=== PATIENT | male | born 1940 | race Caucasian/White ===

== ENCOUNTER 2016-11-24 12:15 | Emergency (ER) | payer OTHER, MEDICARE ==
[2016-11-24 12:23] VITALS: BMI 22.6
[2016-11-24 12:30] VITALS: BP 130/86; PULSE 80; RESP 15; TEMP 98.4; O2SAT 99
[2016-11-24] MEDS ORDERED: TDAP Vaccine 0.5 mL Syr IM ONE (12:34)
--- NOTE | 2016-11-24 12:38 | ED PDOC ---
Arrival/HPI - General Chief Complaint: Trauma Time Seen by Provider: 11/24/16 12:28 Historian: Patient - History of Present Illness Narrative History of Present Illness (Text): 11/24/16 12:30 Juancarlos Parnell is a 76 year old male who presents to the emergency department complaining of facial and right hand abrasions s/p mechanical fall prior to arrival. Patient states that he was walking on an unleveled sidewalk, tripped, and fell on his face. Patient is not aware if his tetanus shot is updated. Patient denies any loss of consciousness, dizziness, nausea, or any other complaints at this time. PMD: Dr. 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 stenosis - HEENT Hx HEENT Disorder: Yes Hx Cataracts: Yes Other/Comment: seasonal allergies - Renal Hx Renal Disorder: No - Endocrine/Metabolic Hx Endocrine Disorders: No - Hematological/Oncological Hx Blood Disorders: No - Integumentary Hx Dermatological Disorder: Yes Other/Comment: cut on leg post fall - Musculoskeletal/Rheumatological Hx Musculoskeletal Disorders: Yes Hx Back Pain: Yes Hx Falls: Yes Hx Gout: Yes Hx Osteoarthritis: Yes Hx Spinal Stenosis: Yes (cervical) Hx Unsteady Gait: Yes Other/Comment: left knee pain - Gastrointestinal Hx Gastrointestinal Disorders: Yes Hx Gastroesophageal Reflux: Yes - Genitourinary/Gynecological Hx Genitourinary Disorders: No - Psychiatric Hx Psychophysiologic Disorder: No Hx Substance Use: No - Surgical History Hx Musculoskeletal Surgery: Yes (attempted anterior cervical decompression) - Anesthesia Hx Anesthesia: Yes Hx Anesthesia Reactions: No Hx Malignant Hyperthermia: No Family/Social History - Physician Review Nursing Documentation Reviewed: Yes Family/Social History: No Known Family HX Smoking Status: Former Smoker Hx Alcohol Use: No Hx Substance Use: No Allergies/Home Meds Allergies/Adverse Reactions: Allergies No Known Allergies Allergy (Verified 11/24/16 12:23) Home Medications: Home Meds Medication Instructions Recorded Confirmed Ranitidine HCl [Ranitidine 150] 150 mg PO DAILY 04/27/14 11/24/16 Rosuvastatin Calcium [Crestor] 5 mg PO DAILY 04/27/14 11/24/16 Alfuzosin HCl [Uroxatral] 10 mg PO DAILY 11/24/16 11/24/16 Allopurinol [Zyloprim] 300 mg PO DAILY 11/24/16 11/24/16 Cetirizine HCl [Zyrtec] 10 mg PO DAILY 11/24/16 11/24/16 amLODIPine [Norvasc] 2.5 mg PO DAILY 11/24/16 11/24/16 Review of Systems - Physician Review All systems were reviewed & negative as marked: Yes - Review of Systems Constitutional: absent: Fevers, Night Sweats Eyes: absent: Vision Changes ENT: absent: Hearing Changes Respiratory: absent: SOB, Cough Cardiovascular: absent: Chest Pain Gastrointestinal: absent: Abdominal Pain Genitourinary Male: absent: Urinary Output Changes Musculoskeletal: absent: Back Pain, Neck Pain Skin: Other (facial and hand abrasions) Neurological: absent: Headache, Focal Weakness Endocrine: absent: Diaphoresis Hemo/Lymphatic: absent: Adenopathy Psychiatric: absent: Depression Physical Exam Vital Signs Reviewed: Yes Vital Signs Temp Pulse Resp BP Pulse Ox 11/24/16 12:30 98.4 F 80 15 130/86 99 Temperature: Afebrile Blood Pressure: Normal Pulse: Regular Respiratory Rate: Normal Appearance: Positive for: Well-Appearing, Non-Toxic, Comfortable Pain Distress: None Mental Status: Positive for: Alert and Oriented X 3 - Systems Exam Head: Present: Atraumatic, Normocephalic Pupils: Present: PERRL Extroacular Muscles: Present: EOMI Conjunctiva: Present: Normal Mouth: Present: Moist Mucous Membranes Neck: Present: Normal Range of Motion Respiratory/Chest: Present: Clear to Auscultation, Good Air Exchange. No: Respiratory Distress, Accessory Muscle Use Cardiovascular: Present: Regular Rate and Rhythm, Normal S1, S2. No: Murmurs Abdomen: Present: Normal Bowel Sounds. No: Tenderness, Distention, Peritoneal Signs Back: Present: Normal Inspection Upper Extremity: Present: Normal Inspection. No: Cyanosis, Edema Lower Extremity: Present: Normal Inspection. No: Edema Neurological: Present: GCS=15, CN II-XII Intact, Speech Normal Skin: Present: Abrasion (to left side orbits and face, tenderness to face; right hand-dorsal side 1st MCP; no tenderness to hand, full ROM) Psychiatric: Present: Alert, Oriented x 3, Normal Insight, Normal Concentration Medical Decision Making ED Course and Treatment: 11/24/16 12:30 Impression: 76 male complaining of facial and right abrasions s/p mechanical fall on sidewalk prior to arrival. Differential Diagnosis included but are not limited to: mechanical fall r/o facial fracture Plan: -- Head CT w/o contrast -- Orbits Facial CT w/o contrast -- Boostrix, Tylenol -- Reassess and disposition Progress Notes: 11/24/16 13:45 Facial abrasion treated with Bacitracin. Reviewed radiology, CTs are normal. Patient will follow up with PMD. 11/24/16 13:50 CT ORBITS WITHOUT CONTRAST Creator : NICOLETTE COOMBS MD FINDINGS: RIGHT ORBIT: RIGHT BONY ORBIT:No evidence of acute fracture. RIGHT INTRAORBITAL STRUCTURES:Globe: Normal. Extraocular muscles: Normal. Post septal space: Normal. Optic Nerve: Normal. Lacrimal Apparatus: Normal. RIGHT PRESEPTAL SOFT TISSUES:Normal. LEFT ORBIT: LEFT BONY ORBIT:No evidence of acute fracture. LEFT INTRAORBITAL STRUCTURES:Globe: Normal. Extraocular muscles: Normal. Post septal space: Normal Optic Nerve: Normal. . Lacrimal Apparatus: Normal. LEFT PRESEPTAL SOFT TISSUES:Normal. OTHER:None. IMPRESSION: No evidence of acute orbital fracture or periorbital soft tissue hematoma. 11/24/16 13:54 CT HEAD WITHOUT CONTRAST Creator : NICOLETTE COOMBS MD FINDINGS: HEMORRHAGE:No intracranial hemorrhage. BRAIN:There are mild chronic microangiopathic changes. There is no mass, mass effect or abnormal extra-axial fluid collection. VENTRICLES:There is mild age-related global parenchymal volume loss and proportionate enlargement of the ventricles and cortical sulci. CALVARIUM:There is no calvarial fracture or extracranial soft tissue swelling. PARANASAL SINUSES:Predominantly clear. MASTOID AIR CELLS:Predominantly clear. OTHER FINDINGS:None. IMPRESSION: No acute intracranial abnormality. Mild chronic microangiopathic changes and mild age-related global parenchymal volume loss. - RAD Interpretation Radiology Orders: 11/24/16 12:34 HEAD W/O CONTRAST [CT] Stat ORBITS/ FACIALS W/O CONTRAST [CT] Stat - Medication Orders Current Medication Orders: Bacitracin (Bacitracin) 1 ea TOP ONCE ONE Stop: 11/24/16 14:01 Last Admin: 11/24/16 13:50 Dose: 1 EA Discontinued Medications Acetaminophen (Tylenol 325mg Tab) 975 mg PO STAT STA Stop: 11/24/16 12:35 Last Admin: 11/24/16 12:39 Dose: 975 MG MAR Pain/Vitals Document 11/24/16 12:39 SE (Rec: 11/24/16 12:39 SE [id number]) Pain Reassessment Is This A Pain ReAssessment? No Sleep Is patient sleeping during reassessment? No Presence of Pain Presence of Pain Yes Pain Scale Used Pain Scale Used Numeric Location Left, Right or Bilateral Left Pain Location Body Site Face Tetanus/Reduced Diphtheria/Acell Pertussis (Boostrix Vaccine Inj) 0.5 ml IM .ONCE ONE Stop: 11/24/16 12:35 Last Admin: 11/24/16 12:39 Dose: 0.5 ML MAR Immunization Data Document 11/24/16 12:39 SE (Rec: 11/24/16 12:40 SE [id number]) Immunization Data Vaccine Lot Number [id number] Vaccine Expiration Date 11/22/18 Site Given Right Arm Route Intramuscular Immunization Units ml - Scribe Statement The provider has reviewed the documentation as recorded by the Shelbi June Provider Scribe Attestation: All medical record entries made by the Scribe were at my direction and personally dictated by me. I have reviewed the chart and agree that the record accurately reflects my personal performance of the history, physical exam, medical decision making, and the department course for this patient. I have also personally directed, reviewed, and agree with the discharge instructions and disposition. Disposition/Present on Arrival - Present on Arrival Any Indicators Present on Arrival: No History of DVT/PE: No History of Uncontrolled Diabetes: No Urinary Catheter: No History of Decub. Ulcer: No History Surgical Site Infection Following: None - Disposition Have Diagnosis and Disposition been Completed?: Yes Diagnosis: Head injury, Facial abrasion, Fall Disposition: HOME/ ROUTINE Disposition Time: 13:30 Patient Plan: Discharge Patient Problems: Current Active Problems Problem Status Diagnosed Facial abrasion Acute Fall Acute Head injury Acute Condition: IMPROVED Discharge Instructions (ExitCare): Head Injury (ED), Abrasion (ED) Additional Instructions: Parmjit, thank you for letting us take care of you today. Your provider was Dr. Barriga. You were treated for Facial Abrasions, Head injury, Fall. The emergency medical care you received today was directed at your acute symptoms. If you were prescribed any medication, please fill it and take as directed. It may take several days for your symptoms to resolve. Return to the Emergency Department if your symptoms worsen, do not improve, or if you have any other problems. Please contact your doctor or call one of the physicians/clinics you have been referred to that are listed on the Patient Visit Information form that is included in your discharge packet. Bring any paperwork you were given at discharge with you along with any medications you are taking to your follow up visit. Our treatment cannot replace ongoing medical care by a primary care provider (PCP) outside of the emergency department. Thank you [facility] of your care today. If you had an X-Ray or CT scan: A Radiologist will review the ED reading if any change in treatment is needed we will contact you. If you had a blood, urine, or wound culture: It will take several days for the results, if any change in treatment is needed we will contact you. If you had an STI test: It will take 48 hours for the results. Please call after 1 week if you have not heard back. Referrals: Chris Garcia MD [Primary Care Provider] - Follow up with primary Forms: WORK NOTE
--- NOTE | 2016-11-24 13:25 | CT ---
PROCEDURE: CT HEAD WITHOUT CONTRAST. HISTORY: fall with head inj r/o ich COMPARISON: None available. TECHNIQUE: Axial computed tomography images were obtained through the head/brain without intravenous contrast. Radiation dose: Total exam DLP = 789.73 mGy-cm. FINDINGS: HEMORRHAGE: No intracranial hemorrhage. BRAIN: There are mild chronic microangiopathic changes. There is no mass, mass effect or abnormal extra-axial fluid collection. VENTRICLES: There is mild age-related global parenchymal volume loss and proportionate enlargement of the ventricles and cortical sulci. CALVARIUM: There is no calvarial fracture or extracranial soft tissue swelling. PARANASAL SINUSES: Predominantly clear. MASTOID AIR CELLS: Predominantly clear. OTHER FINDINGS: None. IMPRESSION: No acute intracranial abnormality. Mild chronic microangiopathic changes and mild age-related global parenchymal volume loss.
--- NOTE | 2016-11-24 13:45 | CT ---
PROCEDURE: CT ORBITS WITHOUT CONTRAST. HISTORY: Fall with facial inj to left r/o fx COMPARISON: None available. TECHNIQUE: Axial CT images of the orbits were obtained. Coronal and sagittal reformats were generated. Radiation dose: Total exam DLP = 789.73 mGy-cm. FINDINGS: RIGHT ORBIT: RIGHT BONY ORBIT: No evidence of acute fracture. RIGHT INTRAORBITAL STRUCTURES: Globe: Normal. Extraocular muscles: Normal. Post septal space: Normal. Optic Nerve: Normal. Lacrimal Apparatus: Normal. RIGHT PRESEPTAL SOFT TISSUES: Normal. LEFT ORBIT: LEFT BONY ORBIT: No evidence of acute fracture. LEFT INTRAORBITAL STRUCTURES: Globe: Normal. Extraocular muscles: Normal. Post septal space: Normal Optic Nerve: Normal. . Lacrimal Apparatus: Normal. LEFT PRESEPTAL SOFT TISSUES: Normal. OTHER: None. IMPRESSION: No evidence of acute orbital fracture or periorbital soft tissue hematoma.
[2016-11-24] MEDS ORDERED: Bacitracin 500 Units/gm Oint Foilpak UD TOP ONE (14:00)
== END 2016-11-24 14:35 | disposition home or self-care (01) ==
LOC: ED 12:15
DX: S00.81XA Abrasion of other part of head, initial encounter (principal); W01.0XXA Fall on same level from slipping, tripping and stumbling without subsequent striking against object, initial encounter; Y93.01 Activity, walking, marching and hiking; Y92.480 Sidewalk as the place of occurrence of the external cause; Z23 Encounter for immunization

== ENCOUNTER 2016-12-14 07:12 | Day surgery (SDC) | payer MEDICARE, OTHER ==
[2016-12-03 08:28] VITALS: BMI 22.6
[2016-12-14] MEDS ORDERED: Simethicone 40 mg/0.6 ml Liquid (30 ml) ONE (07:57)
[2016-12-14] MEDS ORDERED: Propofol 10 mg/ml Inj (20 ML) ONE (09:49)
[2016-12-14] MEDS ORDERED: Phenylephrine 10 mg/ml Inj ONE (09:54)
[2016-12-14] MEDS ORDERED: ePHEDrine 50 mg/ml Inj ONE (09:54)
[2016-12-14] MEDS ORDERED: Sodium Chloride 0.9% 1,000 ML IV SCH (11:30)
[2016-12-14 11:57] LABS: HEMATOCRIT 38.9 % (42.0-52.0); MEAN CORPUSCULAR HEMOGLOBIN 31.9 pg (25.0-35.0); MEAN CORPUSCULAR HGB CONC 33.9 g/dl (31.0-37.0); MEAN PLATELET VOLUME 9.6 fl (7.0-11.0); RED CELL DISTRIBUTION WIDTH 13.3 % (11.5-14.5); WHITE BLOOD COUNT 5.2 10^3/ul (4.5-11.0)
[2016-12-14 12:06] LABS: INR 1.06 (0.93-1.08); PARTIAL THROMBOPLASTIN TIME 29.9 Seconds (23.7-30.8)
[2016-12-14 12:09] LABS: ALB/GLOB RATIO 1.1 (1.1-1.8); ALKALINE PHOSPHATASE 86 U/L (38-133); ALT/SGPT 42 U/L (7-56); AST/SGOT 31 U/L (15-59); BILIRUBIN,TOTAL 0.9 mg/dL (0.2-1.3); BLOOD UREA NITROGEN 13 mg/dL (7-21); CALCIUM 8.6 mg/dL (8.4-10.5); CARBON DIOXIDE 25 mmol/L (21-33); CHLORIDE 105 mmol/L (98-107); GFR AFRICAN-AMERICAN > 60; GLUCOSE,RANDOM 90 mg/dL (70-110); POTASSIUM 3.5 mmol/L (3.6-5.0); SODIUM 139 mmol/L (132-148); TOTAL PROTEIN 7.6 g/dL (5.8-8.3)
[2016-12-14] MEDS ORDERED: Iohexol 350 MG/100 ML VIAL ONE (13:40)
--- NOTE | 2016-12-14 14:29 | CT ---
PROCEDURE: CT Chest and abdomen with intravenous and oral contrast HISTORY: PULSATIN ESOPHAGEAL MASS PER DR GOTTI stat COMPARISON: None. TECHNIQUE: IV dose administered: 100 cc of Omni 350 Radiation dose: Total exam DLP = 322 mGy-cm. This CT exam was performed using one or more of the following dose reduction techniques: Automated exposure control, adjustment of the mA and/or kV according to patient size, and/or use of iterative reconstruction technique. FINDINGS: CT CHEST: LUNGS: Clear. No nodule, mass or consolidation. MEDIASTINUM: Unremarkable. Normal caliber aorta and pulmonary arterial trunk. No aortic dissection. Normal size heart. LYMPH NODES: Unremarkable. PLEURA: Unremarkable. No pneumothorax. No pleural fluid. BONES: Unremarkable. OTHER FINDINGS:: The esophagus is unremarkable. There are no enhancing or vascular lesions visualized. There is no vascular compression CT ABDOMEN: LIVER: Unremarkable. No gross lesion or ductal dilatation. GALLBLADDER AND BILE DUCTS: Unremarkable. PANCREAS: Unremarkable. No gross lesion or ductal dilatation. SPLEEN: Unremarkable. ADRENALS: Unremarkable. No mass. KIDNEYS AND URETERS: Unremarkable. No hydronephrosis. No solid mass. VASCULATURE: Unremarkable. No aortic aneurysm. STOMACH AND BOWEL: Unremarkable, as visualized. The entire bowel was not visualized, as the pelvis was not included in this study. PERITONEUM: Unremarkable. No free fluid. No free air. LYMPH NODES: Unremarkable. No enlarged lymph nodes. BONES: No acute fracture. OTHER FINDINGS: None. IMPRESSION: No evidence of enhancing or vascular mass in the esophagus.
[2016-12-14 14:35] VITALS: BP 149/74; PULSE 78; RESP 16; TEMP 97.5; O2SAT 97
== END 2016-12-14 16:03 | disposition home or self-care (01) ==
LOC: ENDO 07:12 → EDUNIT# 08:30 → ENDO 16:03
PROVIDERS: ATTEND Internal Medicine Gastroenterology
DX: K62.1 Rectal polyp (principal); K57.30 Diverticulosis of large intestine without perforation or abscess without bleeding; K64.8 Other hemorrhoids; K22.70 Barrett's esophagus without dysplasia; K25.9 Gastric ulcer, unspecified as acute or chronic, without hemorrhage or perforation; K22.9 Disease of esophagus, unspecified; I10 Essential (primary) hypertension; E78.5 Hyperlipidemia, unspecified; M48.00 Spinal stenosis, site unspecified; Z12.11 Encounter for screening for malignant neoplasm of colon; K29.50 Unspecified chronic gastritis without bleeding
CPT/HCPCS: 36415; 43239; 45380; 71260; 74160; 80053; 85027; 85610; 85730; 88305; 88312; 88342; J2001; J2370; J2704; J3010; J7040; Q9967

== ENCOUNTER 2017-02-12 16:38 | Observation (INO) | payer MEDICARE, OTHER ==
[2017-02-12 16:39] VITALS: BMI 22.6
[2017-02-12] MEDS ORDERED: Sodium Chloride 0.9% 1,000 ML IV STA (17:45)
[2017-02-12] MEDS ORDERED: Pantoprazole 40 MG in Sodium Chloride 0.9% 100 ML IV STA (17:45)
--- NOTE | 2017-02-12 17:52 | ED PDOC ---
Arrival/HPI - General Chief Complaint: GI Problem Time Seen by Provider: 02/12/17 17:20 Historian: Patient - History of Present Illness Narrative History of Present Illness (Text): 02/12/17 17:49 76 year old male presents to the emergency department complaining of vomiting and diffuse abdominal pain since last night. Denies urinary symptoms, diarrhea, or other complaints. Time/Duration: 24 hours Symptom Onset: Gradual Symptom Course: Unchanged Modifying Factors (Text): None Associated Symptoms (Text): None Past Medical History - Provider Review Nursing Documentation Reviewed: Yes - Infectious Disease Hx of Infectious Diseases: None - Cardiac Hx Cardiac Disorders: Yes Hx Hypertension: Yes Hx Pacemaker: No - Pulmonary Hx Respiratory Disorders: No - Neurological Hx Paralysis: No - HEENT Hx HEENT Disorder: Yes Hx Cataracts: Yes Other/Comment: seasonal allergies - Renal Hx Renal Disorder: No - Endocrine/Metabolic Hx Endocrine Disorders: No - Hematological/Oncological Hx Blood Transfusions: No - Integumentary Hx Dermatological Disorder: Yes Other/Comment: cut on leg post fall - Musculoskeletal/Rheumatological Hx Musculoskeletal Disorders: Yes - Gastrointestinal Hx Gastrointestinal Disorders: Yes Hx Gastroesophageal Reflux: Yes - Genitourinary/Gynecological Hx Genitourinary Disorders: No - Psychiatric Hx Emotional Abuse: No Hx Physical Abuse: No Hx Substance Use: No - Surgical History Other/Comment: colon/endoscopy. - Anesthesia Hx Anesthesia: Yes Hx Anesthesia Reactions: No Hx Malignant Hyperthermia: No - Suicidal Assessment Feels Threatened In Home Enviroment: No Family/Social History - Physician Review Nursing Documentation Reviewed: Yes Family/Social History: Unknown Family HX Smoking Status: Former Smoker Hx Alcohol Use: No Hx Substance Use: No Allergies/Home Meds Allergies/Adverse Reactions: Allergies No Known Allergies Allergy (Verified 02/12/17 16:48) Home Medications: Home Meds Medication Instructions Recorded Confirmed Ranitidine HCl [Ranitidine 150] 150 mg PO DAILY 04/27/14 02/12/17 Rosuvastatin Calcium [Crestor] 5 mg PO DAILY 04/27/14 02/12/17 Alfuzosin HCl [Uroxatral] 10 mg PO DAILY 11/24/16 02/12/17 Cetirizine HCl [Zyrtec] 10 mg PO DAILY 11/24/16 02/12/17 amLODIPine [Norvasc] 2.5 mg PO DAILY 11/24/16 02/12/17 Omeprazole [Omeprazole] 40 mg PO DAILY 12/14/16 02/12/17 Review of Systems - Physician Review All systems were reviewed & negative as marked: Yes - Review of Systems Gastrointestinal: Abdominal Pain (diffuse), Vomiting. absent: Diarrhea Genitourinary Male: absent: Dysuria, Hematuria Physical Exam Vital Signs Reviewed: Yes Vital Signs Temp Pulse Resp BP Pulse Ox 02/13/17 01:00 98.9 F 81 18 119/88 98 02/12/17 21:05 98.1 F 87 14 121/90 97 02/12/17 20:00 89 17 135/80 99 02/12/17 17:47 89 18 134/79 99 02/12/17 16:50 98.2 F 95 H 19 136/81 99 Temperature: Afebrile Blood Pressure: Normal Pulse: Regular Respiratory Rate: Normal Appearance: Positive for: Well-Appearing, Non-Toxic, Comfortable Pain Distress: None Mental Status: Positive for: Alert and Oriented X 3 - Systems Exam Head: Present: Atraumatic, Normocephalic Mouth: Present: Moist Mucous Membranes Neck: Present: Normal Range of Motion Respiratory/Chest: Present: Clear to Auscultation. No: Respiratory Distress, Accessory Muscle Use Cardiovascular: Present: Regular Rate and Rhythm, Normal S1, S2. No: Murmurs Abdomen: Present: Normal Bowel Sounds. No: Tenderness, Distention, Peritoneal Signs Back: Present: Normal Inspection Upper Extremity: No: Cyanosis, Edema Lower Extremity: No: Edema Neurological: Present: GCS=15, CN II-XII Intact Skin: Present: Warm, Dry, Normal Color. No: Rashes Psychiatric: Present: Alert, Oriented x 3 Medical Decision Making ED Course and Treatment: Impression: 76 year old male presents to the emergency department complaining of vomiting and diffuse abdominal pain since last night. Differential Diagnosis include but are not limited to: rule out SBO, rule out intraabdominal pathology like appendicitis Plan: -- CT Abdomen/Pelvis, EKG -- Protonix, Zofran -- IV fluids -- Labs -- Reassess and disposition Progress Notes: 02/13/17 09:51 - Lab Interpretations Lab Results: 02/12/17 17:00 02/12/17 17:00 Lab Results 02/12/17 17:00: Sodium 132, Potassium 3.7, Chloride 95 L, Carbon Dioxide 24, Anion Gap 17, BUN 10, Creatinine 0.7, Est GFR ( Amer) > 60, Est GFR (Non- Af Amer) > 60, Random Glucose 126 H, Calcium 9.3, Total Bilirubin 1.0, AST 30, ALT 40, Alkaline Phosphatase 110, Lactate Dehydrogenase 364, Total Creatine Kinase 126, Troponin I < 0.01, Total Protein 8.5 H, Albumin 4.7, Globulin 3.8, Albumin/Globulin Ratio 1.2, Amylase 87, Lipase 46 02/12/17 17:00: Urine Color Yellow, Urine Appearance Clear, Urine pH 6.5, Ur Specific Paulina 1.015, Urine Protein Negative, Urine Glucose (UA) Negative, Urine Ketones 15 H, Urine Blood Trace-intact H, Urine Nitrate Negative, Urine Bilirubin Negative, Urine Urobilinogen 0.2, Ur Leukocyte Esterase Negative, Urine RBC 2 - 5, Urine WBC 0 - 2, Ur Epithelial Cells 0 - 2, Amorphous Sediment Trace, Urine Bacteria Small 02/12/17 17:00: PT 11.6, INR 1.07, APTT 30.3 02/12/17 17:00: WBC 6.1, RBC 4.45, Hgb 14.1, Hct 41.0 L, MCV 92.1, MCH 31.7, MCHC 34.4, RDW 12.4, Plt Count 236, MPV 9.7, Gran % 87.3 H, Lymph % (Auto) 10.7 L, Bureau % (Auto) 1.8, Eos % (Auto) 0.0 L, Baso % (Auto) 0.2, Gran # 5.29, Lymph # 0.7 L, Bureau # 0.1, Eos # 0.0, Baso # 0.01 - RAD Interpretation Radiology Orders: 02/12/17 17:45 ABD PELVIS PO & IV CONTRAST [CT] Stat - Medication Orders Current Medication Orders: Acetaminophen (Tylenol 325mg Tab) 650 mg PO Q6H PRN PRN Reason: Fever >100.4 F Last Admin: 02/13/17 09:16 Dose: 650 mg Amlodipine Besylate (Norvasc) 2.5 mg PO DAILY [facility] Last Admin: 02/13/17 09:15 Dose: 2.5 mg Atorvastatin Calcium (Lipitor) 20 mg PO DIN [facility] Famotidine (Pepcid) 20 mg PO HS [facility] Last Admin: 02/13/17 01:06 Dose: 20 mg Dextrose/Sodium Chloride (Dextrose 5%/0.9% Ns 1000 Ml) 1,000 mls @ 100 mls/hr IV .Q10H [facility] Last Admin: 02/13/17 01:06 Dose: 100 mls/hr Ibuprofen (Motrin Tab) 600 mg PO Q6H PRN PRN Reason: Pain, Mild (1-3) Loratadine (Claritin) 10 mg PO DAILY [facility] Last Admin: 02/13/17 09:16 Dose: 10 mg Non-Formulary Medication (Alfuzosin Hcl [Uroxatral]) 10 mg PO DAILY [facility] Ondansetron HCl (Zofran Inj) 4 mg IVP Q6H PRN PRN Reason: Nausea/Vomiting Pantoprazole Sodium (Protonix Ec Tab) 40 mg PO ACB [facility] Last Admin: 02/13/17 09:10 Dose: 40 mg Promethazine HCl (Phenergan Tab) 25 mg PO TID PRN PRN Reason: abdominal pain Discontinued Medications Sodium Chloride (Sodium Chloride 0.9%) 1,000 mls @ 200 mls/hr IV .Q5H [facility] Stop: 02/12/17 22:44 Last Admin: 02/12/17 18:00 Dose: 200 mls/hr Iohexol (Omnipaque 240 (50 Ml)) Confirm Administered Dose 50 ml .ROUTE .STK-MED ONE Stop: 02/12/17 18:55 Iohexol (Omnipaque 350 100 Ml) Confirm Administered Dose 350 mg .ROUTE .STK-MED ONE Stop: 02/12/17 20:27 Ondansetron HCl (Zofran Inj) 4 mg IVP STAT [facility] Stop: 02/12/17 17:46 Last Admin: 02/12/17 18:00 Dose: 4 mg Ondansetron HCl (Zofran Inj) 8 mg IVP Q6H PRN PRN Reason: Nausea/Vomiting Pantoprazole Sodium (Protonix Inj) 40 mg IVP STAT STA Stop: 02/12/17 18:01 Last Admin: 02/12/17 18:01 Dose: 40 mg Pantoprazole Sodium (Protonix Inj) Confirm Administered Dose 40 mg .ROUTE .STK- MED ONE Stop: 02/12/17 17:59 Last Admin: 02/12/17 18:01 Dose: ED OBSERVATION Date of observation admission: 02/12/17 Time of observation admission: 17:48 - Observation admission statement Patient is being placed in observation because:: abdominal pain - Goals of Observation Goals of observation are:: monitor patient's response to treatments in the ER - Progress Note Progress Note: 02/12/17 17:48 On initial exam, patient with diffuse abdominal pain. 02/12/17 19:48 Patient with no new complaints. EXAM: CT Abdomen and Pelvis With Intravenous Contrast FINDINGS: Lower thorax: Heart size is normal. There are coronary calcifications. There is a small hiatal hernia. There is subsegmental atelectasis at the lung bases. There is minimal scarring at the lung bases. ABDOMEN: Liver: There is fatty infiltration of the liver. There are small hepatic cysts. Gallbladder and bile ducts: Gallbladder is partially distended. Common bile duct is dilated, 10.8 mm in diameter. Pancreas: unremarkable Spleen: unremarkable Adrenals: unremarkable Kidneys and ureters: There are bilateral renal cysts. There are additional low attenuation lesions too small to characterize.There is no pelvocaliectasis or ureterectasis. Stomach and bowel: The stomach is distended with contrast and air. Rotation is normal. There is no small bowel obstruction. Terminal ileum is unremarkable. Appendix is unremarkable. Colon is incompletely distended which limits evaluation. There is scattered diverticulosis Appendix: See stomach and bowel PELVIS: Bladder: Bladder is distended. Reproductive: Prostate is mildly enlarged. There is prominence of the seminal vesicles. ABDOMEN and PELVIS: Intraperitoneal space: There is no free air or free fluid. Bones/joints: There is a posterior right 10th rib fracture. There are degenerative changes in the spine. There are bulky bridging osteophytes. There is disc disease greatest L3- 4 and L5-S1. Soft tissues: There is a small fat containing umbilical hernia. Vasculature: There are vascular calcifications. Lymph nodes: There is no pathologic adenopathy. IMPRESSION: Subsegmental atelectasis at the lung bases; hepatic and renal cysts ; mildly distended gallbladder with dilated common duct; mildly enlarged prostate with distended bladder; no acute solid visceral or bowel abnormality Additional findings as described above. Dictated and Authenticated by: Hiwot Boudreaux MD 02/12/2017 10:05 PM Eastern Time ([place] & [place]) 02/12/17 22:33 CT Abdomen and Pelvis shows questionable gallbladder pathology. Will order US. 02/12/17 23:[address] Swain, hydroelectric station operator, who is aware and agrees with plan for obs med surg for intractable vomiting. Accepts pt in to hospitalist service. 02/13/17 09:51 - Scribe Statement The provider has reviewed the documentation as recorded by the Shelbi Terrell Provider Scribe Attestation: All medical record entries made by the Shelbi were at my direction and personally dictated by me. I have reviewed the chart and agree that the record accurately reflects my personal performance of the history, physical exam, medical decision making, and the department course for this patient. I have also personally directed, reviewed, and agree with the discharge instructions and disposition. Disposition/Present on Arrival - Present on Arrival Any Indicators Present on Arrival: No History of DVT/PE: No History of Uncontrolled Diabetes: No Urinary Catheter: No History of Decub. Ulcer: No History Surgical Site Infection Following: None - Disposition Have Diagnosis and Disposition been Completed?: Yes Diagnosis: Intractable vomiting Disposition: HOSPITALIZED Disposition Time: 23:00 Patient Plan: Observation Patient Problems: Current Active Problems Problem Status Onset Intractable vomiting Acute Condition: GOOD
[2017-02-12 17:59] LABS: ADD MANUAL DIFF? NO
[2017-02-12 18:04] LABS: BASO # 0.01 K/mm3 (0.0-2.0); BASO % 0.2 % (0.0-3.0); GRAN # 5.29 (1.4-6.5); GRAN % 87.3 % (50.0-68.0); LYMPH # 0.7 (1.2-3.4); LYMPH % 10.7 % (22.0-35.0); MEAN CELL VOLUME 92.1 fL (80.0-105.0); MEAN CORPUSCULAR HEMOGLOBIN 31.7 pg (25.0-35.0); MEAN CORPUSCULAR HGB CONC 34.4 g/dl (31.0-37.0); MEAN PLATELET VOLUME 9.7 fl (7.0-11.0); MONO # 0.1 (0.1-0.6); MONO % 1.8 % (1.0-6.0); PH,URINE 6.5 (4.7-8.0); PLATELET COUNT 236 10^3/uL (120.0-450.0); RED CELL DISTRIBUTION WIDTH 12.4 % (11.5-14.5); URINE APPEARANCE CLEAR (CLEAR); URINE BILIRUBIN NEGATIVE (NEGATIVE); URINE BLOOD TRACE-INTACT (NEGATIVE); URINE COLOR YELLOW (YELLOW); URINE GLUCOSE (UA) NEGATIVE (NEGATIVE); URINE KETONE 15 mg/dL (NEGATIVE); URINE LEUKOCYTE ESTERASE NEGATIVE Leu/uL (NEGATIVE); URINE PROTEIN NEGATIVE mg/dL (<30 mg/dL); URINE UROBILINOGEN 0.2 E.U./dL (<1 E.U./dL); WHITE BLOOD COUNT 6.1 10^3/ul (4.5-11.0)
[2017-02-12 18:08] LABS: URINE EPITHELIAL CELLS 0 - 2 /hpf (0-5); URINE WBC 0 - 2 /hpf (0-6)
[2017-02-12 18:09] LABS: URINE AMORPHOUS SEDIMENT TRACE; URINE BACTERIA SMALL (NEG)
[2017-02-12 18:14] LABS: ALB/GLOB RATIO 1.2 (1.1-1.8); ALKALINE PHOSPHATASE 110 U/L (38-133); ALT/SGPT 40 U/L (7-56); AMYLASE 87 U/L (35-125); AST/SGOT 30 U/L (15-59); BLOOD UREA NITROGEN 10 mg/dL (7-21); CALCIUM 9.3 mg/dL (8.4-10.5); CARBON DIOXIDE 24 mmol/L (21-33); CHLORIDE 95 mmol/L (98-107); GFR AFRICAN-AMERICAN > 60; GLUCOSE,RANDOM 126 mg/dL (70-110); INR 1.07 (0.93-1.08); LIPASE 46 U/L (23-300); PARTIAL THROMBOPLASTIN TIME 30.3 Seconds (23.7-30.8); POTASSIUM 3.7 mmol/L (3.6-5.0); SODIUM 132 mmol/L (132-148); TOTAL PROTEIN 8.5 g/dL (5.8-8.3)
[2017-02-12 18:27] LABS: TROPONIN I < 0.01 ng/mL
[2017-02-12] MEDS ORDERED: Iohexol 240 (50 ml) ONE (18:54)
[2017-02-12] MEDS ORDERED: Iohexol 350 MG/100 ML VIAL ONE (20:26)
--- NOTE | 2017-02-12 22:05 | CT ---
EXAM: CT Abdomen and Pelvis With Intravenous Contrast CLINICAL HISTORY: 76 years old, male; Pain; Abdominal pain; Generalized TECHNIQUE: Axial computed tomography images of the abdomen and pelvis with intravenous contrast. This CT exam was performed using one or more of the following dose reduction techniques: automated exposure control, adjustment of the mA and/or kV according to patient size, and/or use of iterative reconstruction technique. Coronal and sagittal reformatted images were created and reviewed. CONTRAST: 95 mL of OMNI 350 administered intravenously. EXAM DATE/TIME: 02/12/2017 5:45 PM COMPARISON: CT - CHEST, ABDOMEN WITH CONTRAST 12/14/2016 1:54:32 PM FINDINGS: Lower thorax: Heart size is normal. There are coronary calcifications. There is a small hiatal hernia. There is subsegmental atelectasis at the lung bases. There is minimal scarring at the lung bases. ABDOMEN: Liver: There is fatty infiltration of the liver. There are small hepatic cysts. Gallbladder and bile ducts: Gallbladder is partially distended. Common bile duct is dilated, 10.8 mm in diameter. Pancreas: unremarkable Spleen: unremarkable Adrenals: unremarkable Kidneys and ureters: There are bilateral renal cysts. There are additional low attenuation lesions too small to characterize.There is no pelvocaliectasis or ureterectasis. Stomach and bowel: The stomach is distended with contrast and air. Rotation is normal. There is no small bowel obstruction. Terminal ileum is unremarkable. Appendix is unremarkable. Colon is incompletely distended which limits evaluation. There is scattered diverticulosis Appendix: See stomach and bowel PELVIS: Bladder: Bladder is distended. Reproductive: Prostate is mildly enlarged. There is prominence of the seminal vesicles. ABDOMEN and PELVIS: Intraperitoneal space: There is no free air or free fluid. Bones/joints: There is a posterior right 10th rib fracture. There are degenerative changes in the spine. There are bulky bridging osteophytes. There is disc disease greatest L3-4 and L5-S1. Soft tissues: There is a small fat containing umbilical hernia. Vasculature: There are vascular calcifications. Lymph nodes: There is no pathologic adenopathy. IMPRESSION: Subsegmental atelectasis at the lung bases; hepatic and renal cysts; mildly distended gallbladder with dilated common duct; mildly enlarged prostate with distended bladder; no acute solid visceral or bowel abnormality Additional findings as described above.
--- NOTE | 2017-02-12 22:48 | CARD ---
APPROVED REPORT EKG Measurement Heart [id number] <Conclusion> Normal sinus rhythm Normal ECG
--- NOTE | 2017-02-13 00:35 | US ---
EXAM: US Abdomen Limited, Right Upper Quadrant CLINICAL HISTORY: 76 years old, male; Pain; Abdominal pain; Generalized; Additional info: Abd pain TECHNIQUE: Real-time ultrasound of the right upper quadrant with image documentation. EXAM DATE/TIME: 02/12/2017 10:22 PM COMPARISON: CT - ABD PELVIS PO IV CONTRAST 02/12/2017 9:06:44 PM FINDINGS: Liver: Body habitus limits visualization of the liver. Gallbladder: Gallbladder is partially distended with no stones, sludge or wall thickening. Common bile duct: Common bile duct measures 8 mm in the tricia hepatis. The distal duct is obscured by bowel gas. Pancreas: Pancreas is almost completely obscured by bowel gas. Right kidney: Right kidney measures approximately 10 cm in length. There are right renal cysts. Cortical medullary differentiation is visualized.There is no pelvocaliectasis. Aorta: Visualized portions of the aorta and inferior vena cava are unremarkable. IMPRESSION: Limited by body habitus and bowel gas; no gallstones; mildly prominent proximal common duct; renal cysts
--- NOTE | 2017-02-13 00:56 | CP.PCM.HP ---
<FrankForeign - Last Filed: 02/13/17 01:02> History of Present Illness - History of Present Illness History of Present Illness: CC: Vomiting more than 10 times This patient is a 76yo [place] M w/ a PMHx of HTN, GERD/Barrets esophagus, and urinary retention who is coming to the hospital for a 24hr history of vomiting, NBNB after eating a salad and soup at adult daycare. He does not know if anyone else at the adult daycare is sick. He recently had an EGD done that showed barretts espohagus and was placed on omeprazole and ranitidine as per Dr. Mcfadden. He had a colonscopy done as well and a small sessile polyp was removed which was non cancerous. The patient is denying fevers/chills, DUNCAN, CP, SOB, abdominal pain, diarhea, dysuria/freq/urg, or lower extremity pain/ swelling. Patient states he no longer feels nauseus in the hospital and would really like something to eat. PMHx: PMHx of HTN, GERD/Barrets esophagus, and urinary retention Social: denies EtOH/drugs, lives at home with , retired, in adult day care during the day Allergies: None Meds: Alfuzosin, Amlodipine, Cetirzine, Omeprazole, Ranitidine, Crestor Surgeries: Spinal fusion 2 years ago in C2/C3 Fam Hx: Father with HTN In the ED he had an abdomen and pelvis CT with oral contrast which showed renal and liver cysts; US showed cysts as well. patient is VSS, admitted for intractible vomiting Present on Admission - Present on Admission Any Indicators Present on Admission: No History of DVT/PE: No History of Uncontrolled Diabetes: No Urinary Catheter: No Decubitus Ulcer Present: No Past Patient History - Infectious Disease Hx of Infectious Diseases: None - Past Medical History & Family History Past Medical History?: Yes - Past Social History Smoking Status: Former Smoker - CARDIAC Hx Cardiac Disorders: Yes Hx Hypertension: Yes Hx Pacemaker: No - PULMONARY Hx Respiratory Disorders: No - NEUROLOGICAL Hx Paralysis: No - HEENT Hx HEENT Problems: Yes Hx Cataracts: Yes Other/Comment: seasonal allergies - RENAL Hx Chronic Kidney Disease: No - ENDOCRINE/METABOLIC Hx Endocrine Disorders: No - HEMATOLOGICAL/ONCOLOGICAL Hx Blood Transfusions: No - INTEGUMENTARY Hx Dermatological Problems: Yes Other/Comment: cut on leg post fall - MUSCULOSKELETAL/RHEUMATOLOGICAL Hx Musculoskeletal Disorders: Yes - GASTROINTESTINAL Hx Gastrointestinal Disorders: Yes Hx Gastroesophageal Reflux: Yes - GENITOURINARY/GYNECOLOGICAL Hx Genitourinary Disorders: No - PSYCHIATRIC Hx Emotional Abuse: No Hx Physical Abuse: No Hx Substance Use: No - SURGICAL HISTORY Other/Comment: colon/endoscopy. - ANESTHESIA Hx Anesthesia: Yes Hx Anesthesia Reactions: No Hx Malignant Hyperthermia: No Meds Allergies/Adverse Reactions: Allergies Allergy/AdvReac Type Severity Reaction Status Date / Time No Known Allergies Allergy Verified 02/12/17 16:48 Physical Exam - Constitutional Appears: Well, Non-toxic - Head Exam Head Exam: ATRAUMATIC, NORMAL INSPECTION - Eye Exam Eye Exam: EOMI - ENT Exam ENT Exam: Mucous Membranes Moist - Neck Exam Neck exam: Positive for: Full Rom. Negative for: Lymphadenopathy - Respiratory Exam Respiratory Exam: Clear to Auscultation Bilateral, NORMAL BREATHING PATTERN. absent: Rales, Rhonchi, Wheezes - Cardiovascular Exam Cardiovascular Exam: REGULAR RHYTHM, +S1, +S2 - GI/Abdominal Exam GI & Abdominal Exam: Normal Bowel Sounds, Soft. absent: Organomegaly, Pulsatile Mass, Rebound, Rigid, Tenderness - Extremities Exam Extremities exam: Positive for: full ROM. Negative for: calf tenderness, pedal edema, tenderness - Back Exam Back exam: NORMAL INSPECTION. absent: CVA tenderness (L), CVA tenderness (R) - Neurological Exam Neurological exam: Alert, CN II-XII Intact, Normal Gait, Oriented x3, Reflexes Normal - Psychiatric Exam Psychiatric exam: Normal Affect, Normal Mood - Skin Skin Exam: Normal Color, Warm Results - Vital Signs Recent Vital Signs: Last Vital Signs Temp 98.1 F 02/12/17 21:05 Pulse 87 02/12/17 21:05 Resp 14 02/12/17 21:05 BP 121/90 02/12/17 21:05 Pulse Ox 97 02/12/17 21:05 - Labs Result Diagrams: 02/12/17 17:00 02/12/17 17:00 Assessment & Plan - Assessment and Plan (Free Text) Assessment: 76yo M admitted for Intractable Vomiting Intractable Vomiting -Zofran, Phenergan PRN for nausea/vomiting -Patient is tolerating juice in the ER -D5 Normal Saline at 100ml/hr while not eating normal food -advance diet slowly GERD/Barretts Esophagus -c/w omeprazole and ranitidine HTN -c/w home meds Urinary Retention;chronic -c/w home meds Proph SCD Liquid Diet Case Discussed with Dr. Brynn Schneider PGY1 Night Float Decision To Admit - Pt Status Changed To: Hospital Disposition Of: Observation - . Bed Request Type: Med/Surg Admitting Physician: Batsheva Swain <Batsheva Swain - Last Filed: 02/13/17 02:04> Results - Vital Signs Recent Vital Signs: Last Vital Signs Temp 98.9 F 02/13/17 01:00 Pulse 81 02/13/17 01:00 Resp 18 02/13/17 01:00 BP 119/88 02/13/17 01:00 Pulse Ox 98 02/13/17 01:00 - Labs Result Diagrams: 02/12/17 17:00 02/12/17 17:00 Attending/Attestation - Attestation I have personally seen and examined this patient.: Yes I have fully participated in the care of the patient.: Yes I have reviewed all pertinent clinical information: Yes Notes (Text): 02/13/17 01:46 Patient was seen when he was in the ER in bed # 21. Agree with history , physical examination, assessment and plan. This 76 year old male whose PMD is Dr.Pervez Garcia and who has history of HTN,HLD , GERD , frequent falls, smoking cigarettes prior to 1969,occasional alcohol use , endoscopy/colonoscopy, neck surgery at C3,4 level in June 2104, bilateral cataract , seasonal allergies, sinusitis, peptic ulcer disease, frequent headaches , family history of HTN, is here for intractable vomiting and diffuse abdominal pain which is like heaviness/ pressure, chills and itching in both ears,numbness of both hands.
[2017-02-13] MEDS: Dextrose 5%/0.9% NS 1,000 ML IV SCH ×2 (01:06→12:13)
[2017-02-13] MEDS ORDERED: Pantoprazole 40 mg EC Tab PO SCH (07:30)
[2017-02-13 07:40] LABS: ADD MANUAL DIFF? NO
[2017-02-13 07:47] LABS: BASO # 0.02 K/mm3 (0.0-2.0); BASO % 0.3 % (0.0-3.0); EOS % 0.5 % (1.5-5.0); GRAN # 3.86 (1.4-6.5); GRAN % 66.5 % (50.0-68.0); LYMPH # 1.4 (1.2-3.4); LYMPH % 23.9 % (22.0-35.0); MEAN CELL VOLUME 91.3 fL (80.0-105.0); MEAN CORPUSCULAR HEMOGLOBIN 31.7 pg (25.0-35.0); MEAN CORPUSCULAR HGB CONC 34.8 g/dl (31.0-37.0); MEAN PLATELET VOLUME 9.4 fl (7.0-11.0); MONO # 0.5 (0.1-0.6); MONO % 8.8 % (1.0-6.0); PLATELET COUNT 222 10^3/uL (120.0-450.0); RED CELL DISTRIBUTION WIDTH 12.4 % (11.5-14.5); WHITE BLOOD COUNT 5.8 10^3/ul (4.5-11.0)
[2017-02-13 09:19] LABS: ALB/GLOB RATIO 1.3 (1.1-1.8); ALKALINE PHOSPHATASE 96 U/L (38-133); ALT/SGPT 40 U/L (7-56); AST/SGOT 24 U/L (15-59); BILIRUBIN,TOTAL 0.8 mg/dL (0.2-1.3); BLOOD UREA NITROGEN 9 mg/dL (7-21); CALCIUM 9.1 mg/dL (8.4-10.5); CARBON DIOXIDE 24 mmol/L (21-33); CHLORIDE 100 mmol/L (98-107); GFR AFRICAN-AMERICAN > 60; GLUCOSE,RANDOM 107 mg/dL (70-110); POTASSIUM 3.7 mmol/L (3.6-5.0); SODIUM 136 mmol/L (132-148); TOTAL PROTEIN 7.5 g/dL (5.8-8.3)
[2017-02-13 13:35] VITALS: RESP 18
--- NOTE | 2017-02-13 15:46 | CP.PCM.DIS ---
<Chau Theodore - Last Filed: 02/13/17 15:37> Provider - Provider Date of Admission: 02/12/17 17:48 Attending physician: Gertrudis Mcfadden MD Primary care physician: Chris Garcia MD Consults: GI Time Spent in preparation of Discharge (in minutes): 45 Hospital Course - Lab Results Lab Results: Most Recent Lab Values WBC 5.8 10^3/ul (4.5-11.0) 02/13/17 07:30 RBC 4.38 10^6/uL (3.5-6.1) 02/13/17 07:30 Hgb 13.9 gm/dL (14.0-18.0) L 02/13/17 07:30 Hct 40.0 % (42.0-52.0) L 02/13/17 07:30 MCV 91.3 fL (80.0-105.0) 02/13/17 07:30 MCH 31.7 pg (25.0-35.0) 02/13/17 07:30 MCHC 34.8 g/dl (31.0-37.0) 02/13/17 07:30 RDW 12.4 % (11.5-14.5) 02/13/17 07:30 Plt Count 222 10^3/uL (120.0-450.0) 02/13/17 07:30 MPV 9.4 fl (7.0-11.0) 02/13/17 07:30 Gran % 66.5 % (50.0-68.0) 02/13/17 07:30 Lymph % (Auto) 23.9 % (22.0-35.0) 02/13/17 07:30 Mcpherson % (Auto) 8.8 % (1.0-6.0) H 02/13/17 07:30 Eos % (Auto) 0.5 % (1.5-5.0) L 02/13/17 07:30 Baso % (Auto) 0.3 % (0.0-3.0) 02/13/17 07:30 Gran # 3.86 (1.4-6.5) 02/13/17 07:30 Lymph # 1.4 (1.2-3.4) 02/13/17 07:30 Mcpherson # 0.5 (0.1-0.6) 02/13/17 07:30 Eos # 0.0 (0.0-0.7) 02/13/17 07:30 Baso # 0.02 K/mm3 (0.0-2.0) 02/13/17 07:30 PT 11.6 Seconds (9.9-11.8) 02/12/17 17:00 INR 1.07 (0.93-1.08) 02/12/17 17:00 APTT 30.3 Seconds (23.7-30.8) 02/12/17 17:00 Sodium 136 mmol/L (132-148) 02/13/17 08:00 Potassium 3.7 mmol/L (3.6-5.0) 02/13/17 08:00 Chloride 100 mmol/L (98-107) 02/13/17 08:00 Carbon Dioxide 24 mmol/L (21-33) 02/13/17 08:00 Anion Gap 16 (10-20) 02/13/17 08:00 BUN 9 mg/dL (7-21) 02/13/17 08:00 Creatinine 0.8 mg/dL (0.5-1.4) 02/13/17 08:00 Est GFR ( Amer) > 60 02/13/17 08:00 Est GFR (Non-Af Amer) > 60 02/13/17 08:00 Random Glucose 107 mg/dL (70-110) 02/13/17 08:00 Hemoglobin A1c 5.8 % (4.2-6.5) 02/13/17 07:30 Calcium 9.1 mg/dL (8.4-10.5) 02/13/17 08:00 Total Bilirubin 0.8 mg/dL (0.2-1.3) 02/13/17 08:00 AST 24 U/L (15-59) 02/13/17 08:00 ALT 40 U/L (7-56) 02/13/17 08:00 Alkaline Phosphatase 96 U/L (38-133) 02/13/17 08:00 Lactate Dehydrogenase 364 U/L (333-699) 02/12/17 17:00 Total Creatine Kinase 126 U/L (35-230) 02/12/17 17:00 Troponin I < 0.01 ng/mL 02/12/17 17:00 Total Protein 7.5 g/dL (5.8-8.3) 02/13/17 08:00 Albumin 4.2 g/dL (3.0-4.8) 02/13/17 08:00 Globulin 3.2 gm/dL 02/13/17 08:00 Albumin/Globulin Ratio 1.3 (1.1-1.8) 02/13/17 08:00 Amylase 87 U/L (35-125) 02/12/17 17:00 Lipase 46 U/L (23-300) 02/12/17 17:00 Urine Color Yellow (YELLOW) 02/12/17 17:00 Urine Appearance Clear (CLEAR) 02/12/17 17:00 Urine pH 6.5 (4.7-8.0) 02/12/17 17:00 Ur Specific [place] 1.015 (1.005-1.035) 02/12/17 17:00 Urine Protein Negative mg/dL (<30 mg/dL) 02/12/17 17:00 Urine Glucose (UA) Negative mg/dL (NEGATIVE) 02/12/17 17:00 Urine Ketones 15 mg/dL (NEGATIVE) H 02/12/17 17:00 Urine Blood Trace-intact (NEGATIVE) H 02/12/17 17:00 Urine Nitrate Negative (NEGATIVE) 02/12/17 17:00 Urine Bilirubin Negative (NEGATIVE) 02/12/17 17:00 Urine Urobilinogen 0.2 E.U./dL (<1 E.U./dL) 02/12/17 17:00 Ur Leukocyte Esterase Negative [place]/uL (NEGATIVE) 02/12/17 17:00 Urine RBC 2 - 5 /hpf (0-2) 02/12/17 17:00 Urine WBC 0 - 2 /hpf (0-6) 02/12/17 17:00 Ur Epithelial Cells 0 - 2 /hpf (0-5) 02/12/17 17:00 Amorphous Sediment Trace 02/12/17 17:00 Urine Bacteria Small (NEG) 02/12/17 17:00 Hepatitis A IgM Ab Negative (NEGATIVE) 02/13/17 07:30 Hep Bs Antigen Negative (NEGATIVE) 02/13/17 07:30 Hep B Core IgM Ab Negative (NEGATIVE) 02/13/17 07:30 Hepatitis C Antibody Negative (NEGATIVE) 02/13/17 07:30 - Hospital Course Hospital Course: 76 M w/ a PMHx of HTN, GERD / Barrets esophagus, and urinary retention who is coming to the hospital for a 24hr history of vomiting. In the ED basic lab work was done. CT abdomen showed hepatic and renal cysts; mildly distended gallbladder with dilated common duct. Abd US showed no gallstones, mildly prominent prox common duct, renal cyst. Pt was unable to tolerate any diet and was given antiemetic and admitted for intractable vomiting. Pt was afebrile, lab showed no leukocytosis, Vital signs stable. Pt was given IV fluids and antiemetic on the floor. GI was consulted and recommended outpatient follow up and possible MRCP. Today pt was seen and examined at bedside. No acute events overnight. Pt states that he is doing much better. Denies any abdominal pain, nausea, or vomiting. He is eager to go home. He tolerated his lunch. Denies any , castillo, dizziness, n/v, cp, sob, n/v/d. Dx: intractable vomiting. Discharge Exam - Head Exam Head Exam: ATRAUMATIC, NORMAL INSPECTION - Eye Exam Eye Exam: EOMI, Normal appearance, PERRL Pupil Exam: NORMAL ACCOMODATION, PERRL - ENT Exam ENT Exam: Mucous Membranes Moist - Respiratory Exam Respiratory Exam: Clear to PA & Lateral, NORMAL BREATHING PATTERN. absent: Rales, Rhonchi, Wheezes - Cardiovascular Exam Cardiovascular Exam: REGULAR RHYTHM, RRR, +S1, +S2 - GI/Abdominal Exam GI & Abdominal Exam: Normal Bowel Sounds, Soft, Unremarkable. absent: Tenderness - Neurological Exam Neurological exam: Alert, Oriented x3, Reflexes Normal - Psychiatric Exam Psychiatric exam: Normal Affect, Normal Mood - Skin Skin Exam: Dry, Intact, Normal Color, Warm Discharge Plan - Follow Up Plan Condition: IMPROVED Disposition: HOME/ ROUTINE Patient education suggested?: Yes Instructions: Acute Nausea and Vomiting (DC), Acute Nausea and Vomiting (GEN) Additional Instructions: If your symptoms recur come back to the closest ED. Follow up with your PMD with in 2-3 days. Follow up with Dr Calhoun with in aprox 2 weeks for possible MRCP. Referrals: Chris Garcia MD [Primary Care Provider] - Tyler Calhoun MD [Medical Doctor] - <Gertrudis Mcfadden - Last Filed: 02/13/17 17:27> Provider - Provider Date of Admission: 02/12/17 17:48 Attending physician: Gertrudis Mcfadden MD Primary care physician: Chris Garcia MD Hospital Course - Lab Results Lab Results: Most Recent Lab Values WBC 5.8 10^3/ul (4.5-11.0) 02/13/17 07:30 RBC 4.38 10^6/uL (3.5-6.1) 02/13/17 07:30 Hgb 13.9 gm/dL (14.0-18.0) L 02/13/17 07:30 Hct 40.0 % (42.0-52.0) L 02/13/17 07:30 MCV 91.3 fL (80.0-105.0) 02/13/17 07:30 MCH 31.7 pg (25.0-35.0) 02/13/17 07:30 MCHC 34.8 g/dl (31.0-37.0) 02/13/17 07:30 RDW 12.4 % (11.5-14.5) 02/13/17 07:30 Plt Count 222 10^3/uL (120.0-450.0) 02/13/17 07:30 MPV 9.4 fl (7.0-11.0) 02/13/17 07:30 Gran % 66.5 % (50.0-68.0) 02/13/17 07:30 Lymph % (Auto) 23.9 % (22.0-35.0) 02/13/17 07:30 Mcpherson % (Auto) 8.8 % (1.0-6.0) H 02/13/17 07:30 Eos % (Auto) 0.5 % (1.5-5.0) L 02/13/17 07:30 Baso % (Auto) 0.3 % (0.0-3.0) 02/13/17 07:30 Gran # 3.86 (1.4-6.5) 02/13/17 07:30 Lymph # 1.4 (1.2-3.4) 02/13/17 07:30 Mcpherson # 0.5 (0.1-0.6) 02/13/17 07:30 Eos # 0.0 (0.0-0.7) 02/13/17 07:30 Baso # 0.02 K/mm3 (0.0-2.0) 02/13/17 07:30 PT 11.6 Seconds (9.9-11.8) 02/12/17 17:00 INR 1.07 (0.93-1.08) 02/12/17 17:00 APTT 30.3 Seconds (23.7-30.8) 02/12/17 17:00 Sodium 136 mmol/L (132-148) 02/13/17 08:00 Potassium 3.7 mmol/L (3.6-5.0) 02/13/17 08:00 Chloride 100 mmol/L (98-107) 02/13/17 08:00 Carbon Dioxide 24 mmol/L (21-33) 02/13/17 08:00 Anion Gap 16 (10-20) 02/13/17 08:00 BUN 9 mg/dL (7-21) 02/13/17 08:00 Creatinine 0.8 mg/dL (0.5-1.4) 02/13/17 08:00 Est GFR ( Amer) > 60 02/13/17 08:00 Est GFR (Non-Af Amer) > 60 02/13/17 08:00 Random Glucose 107 mg/dL (70-110) 02/13/17 08:00 Hemoglobin A1c 5.8 % (4.2-6.5) 02/13/17 07:30 Calcium 9.1 mg/dL (8.4-10.5) 02/13/17 08:00 Total Bilirubin 0.8 mg/dL (0.2-1.3) 02/13/17 08:00 AST 24 U/L (15-59) 02/13/17 08:00 ALT 40 U/L (7-56) 02/13/17 08:00 Alkaline Phosphatase 96 U/L (38-133) 02/13/17 08:00 Lactate Dehydrogenase 364 U/L (333-699) 02/12/17 17:00 Total Creatine Kinase 126 U/L (35-230) 02/12/17 17:00 Troponin I < 0.01 ng/mL 02/12/17 17:00 Total Protein 7.5 g/dL (5.8-8.3) 02/13/17 08:00 Albumin 4.2 g/dL (3.0-4.8) 02/13/17 08:00 Globulin 3.2 gm/dL 02/13/17 08:00 Albumin/Globulin Ratio 1.3 (1.1-1.8) 02/13/17 08:00 Amylase 87 U/L (35-125) 02/12/17 17:00 Lipase 46 U/L (23-300) 02/12/17 17:00 Urine Color Yellow (YELLOW) 02/12/17 17:00 Urine Appearance Clear (CLEAR) 02/12/17 17:00 Urine pH 6.5 (4.7-8.0) 02/12/17 17:00 Ur Specific [place] 1.015 (1.005-1.035) 02/12/17 17:00 Urine Protein Negative mg/dL (<30 mg/dL) 02/12/17 17:00 Urine Glucose (UA) Negative mg/dL (NEGATIVE) 02/12/17 17:00 Urine Ketones 15 mg/dL (NEGATIVE) H 02/12/17 17:00 Urine Blood Trace-intact (NEGATIVE) H 02/12/17 17:00 Urine Nitrate Negative (NEGATIVE) 02/12/17 17:00 Urine Bilirubin Negative (NEGATIVE) 02/12/17 17:00 Urine Urobilinogen 0.2 E.U./dL (<1 E.U./dL) 02/12/17 17:00 Ur Leukocyte Esterase Negative [place]/uL (NEGATIVE) 02/12/17 17:00 Urine RBC 2 - 5 /hpf (0-2) 02/12/17 17:00 Urine WBC 0 - 2 /hpf (0-6) 02/12/17 17:00 Ur Epithelial Cells 0 - 2 /hpf (0-5) 02/12/17 17:00 Amorphous Sediment Trace 02/12/17 17:00 Urine Bacteria Small (NEG) 02/12/17 17:00 Hepatitis A IgM Ab Negative (NEGATIVE) 02/13/17 07:30 Hep Bs Antigen Negative (NEGATIVE) 02/13/17 07:30 Hep B Core IgM Ab Negative (NEGATIVE) 02/13/17 07:30 Hepatitis C Antibody Negative (NEGATIVE) 02/13/17 07:30 Attending/Attestation - Attestation I have personally seen and examined this patient.: Yes I have fully participated in the care of the patient.: Yes I have reviewed all pertinent clinical information, including history, physical exam and plan: Yes Notes (Text): 02/13/17 17:24 Attending note; Patient seen and examined with resident. Patient is a 76-year-old male admitted with nausea and vomiting for [address] abdomen showed mildly distended gallbladder without stones. CBD is 8mm. GI evaluation with Dr. Zheng appreciated. Patient is tolerating diet well. Patient will follow up with GI as outpatient. Outpatient MRCP suggested. Follow-up with PMD . Follow up with GI in 2 weeks. Diagnosis; Acute gastritis History of colon polyp. 02/13/17 17:26
--- NOTE | 2017-02-13 17:10 | CON ---
DATE: 02/13/2017 GI FOLLOWUP NOTE The patient was seen and examined at the bedside. This was earlier this morning. The patient was out of bed in chair. The chart was reviewed. Request for consult is for intractable vomiting. HISTORY OF PRESENT ILLNESS: This is a 76-year-old male with a past medical history of GERD, Jimenez's esophagitis, hypertension and urinary retention, came to the hospital with complaints of acute onset of nausea and vomiting. The patient was at adult daycare recalls having salad and noodles for lunch and after lunch he became dizzy, complained of a headache had abdominal pain, nausea and started vomiting. He did not have any episodes of diarrhea. No fever or chills. He has not had an episode of vomiting since admission. He does complain of nausea and headache. He was on clear liquid this morning, which he tolerated. This did not precipitate any nausea or abdominal pain. He did have endoscopy and colonoscopy done on 12/14/[address] Calhoun and was found to have a small sessile polyp which was removed and noncancerous. He also had endoscopy, found to have esophagitis. Biopsies were positive for intestinal metaplasia and gastric ulcer. He denies any symptoms of acid reflux. He currently is on omeprazole and ranitidine. Denies any weight loss, loss of appetite or any shortness of breath or chest pain. No complaints of any melena or bright red blood per rectum. PAST MEDICAL HISTORY: As stated above, hypertension, GERD, Jimenez's esophagus , urinary retention, hyperlipidemia. PAST SURGICAL HISTORY: Spinal fusion. Denies any abdominal or cardiac procedures or surgery. FAMILY HISTORY: Father with hypertension. SOCIAL HISTORY: Denies ETOH, smoking or drugs. ALLERGIES: No known drug allergies. MEDICATIONS: Reviewed as per MAR. REVIEW OF SYSTEMS: Systems were reviewed with positive findings, see HPI. VITAL SIGNS: Temperature is 98.5, blood pressure 136/83, pulse 73, respirations 19, 96% on room air. LABORATORY WORK: WBC is 5.3, H and H is 13.9 and 40.4, platelets 222. PT is 11.6, INR is 1.07, PTT 30.3. His sodium today is 136, K 3.7, BUN 9, creatinine 0.8. LFTs are within normal limits. Troponin is negative x 1. Amylase and lipase on admission were normal. He did have CT scan of abdomen and pelvis with oral and IV contrast and that did show fatty infiltration of the liver with small hepatic cysts. Gallbladder is partially distended with common bile duct dilated at 10 mm in diameter. Stomach and bowel are distended with contrast and air, no small-bowel obstruction. TI is unremarkable. There is scattered diverticulosis. Mildly enlarged prostate. No acute solid, fistular, or bowel abnormality. He did have a gallbladder ultrasound and common bile duct was 8 mm in the tricia hepatis, the distal duct is obscured by bowel gas. There are no gallstones and he has a mildly prominent proximal common duct and renal cyst. PHYSICAL EXAMINATION: HEENT: Sclerae are anicteric. NECK: Supple. CARDIAC: S1, S2. LUNGS: Decreased breath sounds but good air entry, no rales or wheeze. ABDOMEN: With bowel sounds, soft, not distended, nontender on palpation. No rebound or guarding. EXTREMITIES: Positive pedal pulses, no edema. NEUROLOGIC: Awake, alert, and oriented. ASSESSMENT: This is a 76-year-old male with acute onset of intractable vomiting. The patient with nausea, vomiting, and headache consider gastroenteritis. He did have CT scan of abdomen and pelvis, no gallstones, showed mildly dilated common bile duct and a distended gallbladder on CT scan. Ultrasound was done and gallbladder is partially distended with no stones, sludge or wall thickening. Common bile duct of 8 mm, mildly dilated. The patient denies abdominal pain. No recent vomiting. Does have a history of Jimenez's esophagus, history of colon polyp, diverticulosis, hypertension, hyperlipidemia. PLAN: The patient is tolerating clear liquids. We will consider advancing the diet. Recommend soft, low residual diet. Continue PPI. He is on Protonix 40 in the morning and Pepcid 20 in the evening. IV fluids for hydration. He is on Lipitor and antihypertensives. If patient tolerates diet might be discharged home today. Patient would benefit to have MRCP to evaluate midly dilated CBD, can be done outpatient, script given to patient and discuss FU outpatient office in [address] Mcfadden. Thank you for this consult and for allowing us to participate in your patient's care. We will make further recommendation based upon patient's clinical course. The patient was seen and case discussed with Dr. Calhoun. Lluvia Parrish APN-C Tyler Calhoun MD cc: [facility] TT: 02/13/2017 17:09:27 Confirmation # [id number] Dictation # [id number] MTDD
[2017-02-13 18:02] VITALS: BP 129/92; PULSE 99; TEMP 98.9; O2SAT 100
--- NOTE | 2017-02-13 20:41 | CON ---
DATE: 02/13/2017 This patient was seen and evaluated earlier. The imaging studies were reviewed. Previous GI w orkup was reviewed. The patient has already been scheduled for a repeat endoscopic evaluation. On e xamination, the patient now feels that his symptoms are completely subsided. On examination the abdomen is soft. There is no tenderness. IMPRESSION AND PLAN: 1. Would recommend the patient to continue the PPI 2. The patient was advised to keep the appointment for the repeat endoscopy. 3. The patient was given a request for an MRCP to be done as an outpatient. 4. The patient was advised to follow up in the office. Thank you very much for allowing us to participate in the care of the patient. Tyler Calhoun MD cc: [id number] TT: 02/13/2017 20:41:15 Confirmation # [id number] Dictation # [id number]
== END 2017-02-13 18:55 | disposition home or self-care (01) ==
LOC: ED 16:38 → EROBSV 17:48 → ERH 23:07 → 3RNO 02-13 02:03
PROVIDERS: ADMIT Internal Medicine; ATTEND Internal Medicine
DX: K29.00 Acute gastritis without bleeding (principal); E78.5 Hyperlipidemia, unspecified; K21.0 Gastro-esophageal reflux disease with esophagitis; I10 Essential (primary) hypertension; J98.11 Atelectasis; K22.70 Barrett's esophagus without dysplasia; K25.9 Gastric ulcer, unspecified as acute or chronic, without hemorrhage or perforation; K82.8 Other specified diseases of gallbladder; N28.1 Cyst of kidney, acquired; N40.1 Benign prostatic hyperplasia with lower urinary tract symptoms; R33.8 Other retention of urine; Z79.899 Other long term (current) drug therapy; Z82.49 Family history of ischemic heart disease and other diseases of the circulatory system; Z86.010 Personal history of colon polyps; Z98.1 Arthrodesis status; H26.9 Unspecified cataract; J30.2 Other seasonal allergic rhinitis; Z91.81 History of falling; Z87.891 Personal history of nicotine dependence; R40.2412 Glasgow coma scale score 13-15, at arrival to emergency department; K76.89 Other specified diseases of liver; K57.90 Diverticulosis of intestine, part unspecified, without perforation or abscess without bleeding
CPT/HCPCS: 36415; 74177; 76705; 80053; 80074; 81001; 82150; 82550; 83036; 83615; 83690; 84484; 85025; 85610; 85730; 87086; 93005; 96374; 96375; 97116; 97161; 97530; 99285; C9113; G0378; G8978; G8979; J2405; J7040; J7042; Q9966; Q9967

== ENCOUNTER 2017-03-08 10:35 | Day surgery (SDC) | payer MEDICARE, OTHER ==
[2017-03-08 11:43] LABS: BASO # 0.01 K/mm3 (0.0-2.0); BASO % 0.2 % (0.0-3.0); EOS # 0.1 (0.0-0.7); EOS % 1.9 % (1.5-5.0); GRAN # 3.52 (1.4-6.5); GRAN % 74.3 % (50.0-68.0); HEMOGLOBIN 14.6 gm/dL (14.0-18.0); LYMPH # 0.8 (1.2-3.4); LYMPH % 16.2 % (22.0-35.0); MEAN CELL VOLUME 94.7 fL (80.0-105.0); MEAN CORPUSCULAR HEMOGLOBIN 32.1 pg (25.0-35.0); MEAN CORPUSCULAR HGB CONC 33.9 g/dl (31.0-37.0); MEAN PLATELET VOLUME 9.2 fl (7.0-11.0); MONO # 0.4 (0.1-0.6); MONO % 7.4 % (1.0-6.0); PLATELET COUNT 178 10^3/uL (120.0-450.0); RBC 4.55 10^6/uL (3.5-6.1); WHITE BLOOD COUNT 4.7 10^3/ul (4.5-11.0)
[2017-03-08 11:48] LABS: ALB/GLOB RATIO 1.2 (1.1-1.8); ALBUMIN 4.8 g/dL (3.0-4.8); ALT/SGPT 37 U/L (7-56); AMYLASE 97 U/L (35-125); AST/SGOT 36 U/L (15-59); BLOOD UREA NITROGEN 10 mg/dL (7-21); CALCIUM 9.7 mg/dL (8.4-10.5); GAMMA GLUTAMYL TRANSPEPTIDASE 65 U/L (8-78); GFR AFRICAN-AMERICAN > 60; GFR NON-AFRICAN AMERICAN > 60; INR 0.96 (0.93-1.08); LIPASE 58 U/L (23-300); PARTIAL THROMBOPLASTIN TIME 29.2 Seconds (23.7-30.8); PROTHROMBIN TIME 10.4 Seconds (9.9-11.8)
[2017-03-08] MEDS ORDERED: Sodium Chloride 0.9% 1,000 ML IV SCH (13:15)
[2017-03-08] MEDS ORDERED: Midazolam 2 MG/2 ML VIAL ONE (13:45)
[2017-03-08] MEDS ORDERED: Etomidate 20 mg/10ml Inj IV ONE (13:45)
[2017-03-08] MEDS ORDERED: Propofol 10 mg/ml Inj (20 ML) ONE (13:48)
[2017-03-08 15:20] VITALS: BP 139/78; PULSE 105; RESP 20; TEMP 98.7; O2SAT 96
== END 2017-03-08 16:30 | disposition home or self-care (01) ==
LOC: ENDO 10:35
PROVIDERS: ATTEND Internal Medicine Gastroenterology
DX: K25.9 Gastric ulcer, unspecified as acute or chronic, without hemorrhage or perforation (principal); K22.9 Disease of esophagus, unspecified; K29.50 Unspecified chronic gastritis without bleeding
CPT/HCPCS: 36415; 43239; 80053; 82150; 82977; 83690; 85025; 85610; 85730; 88305; 88342; J2250; J2704; J3010; J7040 ×2